=== PATIENT | female | born 1945 | race Caucasian/White ===

== ENCOUNTER → 2016-12-25 | Outpatient (CLI) | payer MEDICARE, OTHER ==
[2016-12-25 13:39] LABS: ALBUMIN 4.1 GM/DL (3.2-5.2); ALBUMIN/GLOBULIN RATIO 1.21 (1.00-1.93); ALKALINE PHOSPHATASE 75 U/L (45-117); ALT/SGPT 21 U/L (12-78); ANION GAP 7 MEQ/L (8-16); AST/SGOT 17 U/L (15-37); BILIRUBIN,TOTAL 0.6 MG/DL (0.2-1.0); BLOOD UREA NITROGEN 21 MG/DL (7-18); CALCIUM LEVEL 9.6 MG/DL (8.8-10.2); CARBON DIOXIDE LEVEL 30 MEQ/L (21-32); CHLORIDE LEVEL 101 MEQ/L (98-107); CHOLESTEROL LEVEL 189 MG/DL (<200); CREATININE FOR GFR 0.63 MG/DL (0.55-1.02); GLOMERULAR FILTRATION RATE > 60.0 (>45); GLUCOSE, FASTING 98 MG/DL (80-110); POTASSIUM SERUM 4.1 MEQ/L (3.5-5.1); SODIUM LEVEL 138 MEQ/L (136-145); TOTAL PROTEIN 7.5 GM/DL (6.4-8.2); TRIGLYCERIDES LEVEL 144 MG/DL (<150)
== END ==
LOC: M SMT 08:52
PROVIDERS: ATTEND Emergency Medicine
DX: I10 Essential (primary) hypertension (principal); E78.2 Mixed hyperlipidemia; E55.9 Vitamin D deficiency, unspecified

== ENCOUNTER → 2017-02-28 | Outpatient (CLI) | payer MEDICARE, OTHER ==
[2017-02-28 11:16] LABS: FOLATE > 24.0 NG/ML; VITAMIN B12 LEVEL 362 PG/ML
== END ==
LOC: M SMT 09:52
PROVIDERS: ATTEND Psychiatry & Neurology Neurology
DX: E55.9 Vitamin D deficiency, unspecified (principal); E03.9 Hypothyroidism, unspecified; E61.0 Copper deficiency

== ENCOUNTER → 2018-08-22 | Outpatient (REF) | payer MEDICARE, OTHER ==
[2018-08-22 12:52] LABS: BASO % 0.6 % (0.0-1.0); EOS # 0.1 10^3/uL (0.0-0.50); EOS % 0.9 % (0.0-3.0); HEMATOCRIT 39.3 % (36.0-47.0); HEMOGLOBIN 13.2 g/dl (12.0-15.5); IMMATURE GRANULOCYTE % 0.4 % (0-3.0); LYMPH # 1.8 10^3/uL (1.5-4.5); LYMPH % 25.8 % (24.0-44.0); MEAN CORPUSCULAR HEMOGLOBIN 33.3 pg (27.0-33.0); MEAN CORPUSCULAR HGB CONC 33.6 g/dl (32.0-36.5); MEAN CORPUSCULAR VOLUME 99.2 fl (80.0-96.0); MONO # 0.4 10^3/uL (0.0-0.8); MONO % 6.4 % (0.0-5.0); NEUTROPHILS # 4.6 10^3/uL (1.8-7.7); NEUTROPHILS % 65.9 % (36.0-66.0); PLATELET COUNT, AUTOMATED 320 10^3/uL (150-450); RED BLOOD COUNT 3.96 10^6/uL (4.00-5.40); RED CELL DISTRIBUTION WIDTH 12.7 % (11.5-14.5); WHITE BLOOD COUNT 6.9 10^3/uL (4.0-10.0)
[2018-08-22 13:36] LABS: ALBUMIN 3.8 GM/DL (3.2-5.2); ALBUMIN/GLOBULIN RATIO 1.19 (1.00-1.93); ALKALINE PHOSPHATASE 81 U/L (45-117); ALT/SGPT 23 U/L (12-78); ANION GAP 7 MEQ/L (8-16); AST/SGOT 20 U/L (7-37); BILIRUBIN,TOTAL 0.5 MG/DL (0.2-1.0); BLOOD UREA NITROGEN 16 MG/DL (7-18); CALCIUM LEVEL 9.8 MG/DL (8.8-10.2); CARBON DIOXIDE LEVEL 30 MEQ/L (21-32); CHLORIDE LEVEL 101 MEQ/L (98-107); CHOLESTEROL LEVEL 159 MG/DL (<200); CHOLESTEROL RISK RATIO 2.789 (<5); FREE T4 1.03 NG/DL (0.76-1.46); GLOMERULAR FILTRATION RATE > 60.0 (>39); GLUCOSE, FASTING 85 MG/DL (70-100); HDL CHOLESTEROL 57 MG/DL (>40); LDL CHOLESTEROL 81 MG/DL (<100); NON-HDL-C 102 MG/DL; POTASSIUM SERUM 3.9 MEQ/L (3.5-5.1); SODIUM LEVEL 138 MEQ/L (136-145); TRIGLYCERIDES LEVEL 103 MG/DL (<150)
== END ==
LOC: M SFHCADAM 09:29
DX: Z00.00 Encounter for general adult medical examination without abnormal findings (principal)
CPT/HCPCS: 84443

== ENCOUNTER → 2019-02-07 | Outpatient (REF) | payer MEDICARE, OTHER ==
[~2019-02-07] MED LIST: DIPH25CA PO; HYDR12CA; LISI-538; MULTCAP PO; NITR-67 PO; OYST500T12; SIMV10TA2; VITA-122
[2019-02-07 19:56] LABS: BASO % 0.1 % (0.0-1.0); HEMATOCRIT 35.3 % (36.0-47.0); HEMOGLOBIN 12.1 g/dl (12.0-15.5); LYMPH # 0.6 10^3/uL (1.5-4.5); LYMPH % 5.7 % (24.0-44.0); MEAN CORPUSCULAR HEMOGLOBIN 32.7 pg (27.0-33.0); MEAN CORPUSCULAR HGB CONC 34.3 g/dl (32.0-36.5); MEAN CORPUSCULAR VOLUME 95.4 fl (80.0-96.0); MONO # 0.7 10^3/uL (0.0-0.8); MONO % 6.2 % (0.0-5.0); NEUTROPHILS # 9.4 10^3/uL (1.8-7.7); NEUTROPHILS % 87.5 % (36.0-66.0); PLATELET COUNT, AUTOMATED 232 10^3/uL (150-450); WHITE BLOOD COUNT 10.8 10^3/uL (4.0-10.0)
== END ==
LOC: M LAB REF 13:57
PROVIDERS: ATTEND Physician Assistant Medical
DX: R50.9 Fever, unspecified (principal)

== ENCOUNTER 2019-02-08 11:41 | Emergency (ER) | payer MEDICARE, OTHER ==
[~2019-02-08] VITALS: Ht 170.2 cm; Wt 52.3 kg
[2019-02-08] MEDS ORDERED: MULTCAP PO (11:51)
[2019-02-08] MEDS ORDERED: SIMV10TA2 (11:51)
[2019-02-08] MEDS ORDERED: HYDR12CA (11:51)
[2019-02-08] MEDS ORDERED: DIPH25CA PO (11:51)
[2019-02-08] MEDS ORDERED: LISI-538 (11:51)
[2019-02-08] MEDS ORDERED: OYST500T12 (11:51)
[2019-02-08] MEDS ORDERED: VITA-122 (11:51)
[2019-02-08] MEDS ORDERED: ACETAMINOPHEN 500 MG TAB PO ONE (12:30)
[2019-02-08] MEDS ORDERED: DILUENT IV ONE (12:45)
[2019-02-08] MEDS ORDERED: NS IV ONE (12:45)
[2019-02-08 13:18] LABS: BASO % 0.2 % (0.0-1.0); HEMOGLOBIN 12.3 g/dl (12.0-15.5); LYMPH # 0.8 10^3/uL (1.5-4.5); LYMPH % 8.9 % (24.0-44.0); MEAN CORPUSCULAR HGB CONC 35.1 g/dl (32.0-36.5); MEAN CORPUSCULAR VOLUME 93.8 fl (80.0-96.0); MONO # 0.7 10^3/uL (0.0-0.8); MONO % 8.1 % (0.0-5.0); NEUTROPHILS # 6.9 10^3/uL (1.8-7.7); NEUTROPHILS % 82.4 % (36.0-66.0); PLATELET COUNT, AUTOMATED 213 10^3/uL (150-450); RED BLOOD COUNT 3.73 10^6/uL (4.00-5.40); WHITE BLOOD COUNT 8.4 10^3/uL (4.0-10.0)
[2019-02-08 13:25] LABS: APPEARANCE, URINE CLOUDY (CLEAR); BACTERIA, URINE AUTO 2+ (NEGATIVE); BILIRUBIN, URINE AUTO NEGATIVE (NEGATIVE); BLOOD, URINE BLOOD 2+ (NEGATIVE); COLOR, URINE YELLOW (YELLOW); GLUCOSE, URINE (UA) AUTO NEGATIVE (NEGATIVE); KETONE, URINE AUTO TRACE mg/dL (NEGATIVE); LEUKOCYTE ESTERASE, URINE AUTO 3+ (NEGATIVE); MUCUS, URINE SMALL (NEGATIVE); NITRITE, URINE AUTO NEGATIVE (NEGATIVE); PROTEIN, URINE AUTO 1+ mg/dL (NEGATIVE); RBC, URINE AUTO 13 /HPF (0-3); SPECIFIC GRAVITY URINE AUTO 1.013 (1.002-1.035); SQUAMOUS EPITHELIAL CELL UR AU 0 /HPF (0-6); UROBILINOGEN, URINE AUTO 0.2 mg/dL (0.0-2.0); WBC, URINE AUTO 121 /HPF (0-3)
[2019-02-08 13:31] LABS: INR 0.94; PROTHROMBIN TIME 12.7 SECONDS (12.1-14.4)
[2019-02-08 13:32] LABS: PARTIAL THROMBOPLASTIN TIME 30.9 SECONDS (25.4-37.6)
--- NOTE | 2019-02-08 13:37 | REP ---
Chest x-ray: Three views. History: Fever. No comparison chest x-ray. Findings: The lungs are slightly hyperinflated consistent with some degree of COPD but free of infiltrate. The pleural angles are sharp. Heart size is normal. The thoracic aorta is a little tortuous and calcific. There are degenerative changes in the thoracic spine. Impression: No acute disease. Electronically Signed by Reji Gonzalez MD 02/08/2019 01:28 P
[2019-02-08 13:38] LABS: ALT/SGPT 32 U/L (12-78); AMYLASE 40 U/L (25-115); BILIRUBIN,DIRECT 0.2 MG/DL (0.0-0.2); BILIRUBIN,TOTAL 0.4 MG/DL (0.2-1.0); BLOOD UREA NITROGEN 33 MG/DL (7-18); CALCIUM LEVEL 9.3 MG/DL (8.8-10.2); CARBON DIOXIDE LEVEL 28 MEQ/L (21-32); CHLORIDE LEVEL 91 MEQ/L (98-107); CREATININE FOR GFR 0.88 MG/DL (0.55-1.30); GLOMERULAR FILTRATION RATE > 60.0 (>39); GLUCOSE, FASTING 106 MG/DL (70-100); POTASSIUM SERUM 3.1 MEQ/L (3.5-5.1); SODIUM LEVEL 129 MEQ/L (136-145); TOTAL PROTEIN 6.2 GM/DL (6.4-8.2)
[2019-02-08 13:46] LABS: INFLUENZA A AMPLIFICATION NEGATIVE (NEGATIVE); INFLUENZA B AMPLIFICATION NEGATIVE (NEGATIVE)
[2019-02-08] MEDS ORDERED: POTASSIUM CHLORIDE 10 MEQ SR TABLET PO ONE (14:15)
[2019-02-08] MEDS ORDERED: NITROFURANTOIN (MACROBID) 100 MG CAP PO ONE (14:15)
[2019-02-08 15:17] LABS: ERYTHROCYTE SEDIMENTATION RATE 72 mm/hr (0-30)
[2019-02-08] MEDS ORDERED: NITR-67 PO (15:17)
[2019-02-08 15:20] VITALS: BP 97/53
--- NOTE | 2019-02-09 07:21 | ECGEPIP ---
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
== END 2019-02-08 15:31 | disposition home or self-care (01) ==
LOC: M ED 11:41
DX: I51.7 Cardiomegaly (principal); N39.0 Urinary tract infection, site not specified; E87.6 Hypokalemia; E87.1 Hypo-osmolality and hyponatremia; D64.9 Anemia, unspecified; I10 Essential (primary) hypertension; G89.29 Other chronic pain; M54.9 Dorsalgia, unspecified; F03.90 Unspecified dementia, unspecified severity, without behavioral disturbance, psychotic disturbance, mood disturbance, and anxiety; Z72.0 Tobacco use; Z79.899 Other long term (current) drug therapy; Z88.0 Allergy status to penicillin; Z88.2 Allergy status to sulfonamides

== ENCOUNTER → 2019-02-20 | Outpatient (REF) | payer MEDICARE, OTHER ==
[2019-02-20 18:13] LABS: ALBUMIN 3.5 GM/DL (3.2-5.2); ALT/SGPT 26 U/L (12-78); BILIRUBIN,TOTAL 0.4 MG/DL (0.2-1.0); BLOOD UREA NITROGEN 13 MG/DL (7-18); CALCIUM LEVEL 9.5 MG/DL (8.8-10.2); CARBON DIOXIDE LEVEL 32 MEQ/L (21-32); CHLORIDE LEVEL 99 MEQ/L (98-107); CREATININE FOR GFR 0.65 MG/DL (0.55-1.30); GLOMERULAR FILTRATION RATE > 60.0 (>39); GLUCOSE, FASTING 87 MG/DL (70-100); POTASSIUM SERUM 4.2 MEQ/L (3.5-5.1); SODIUM LEVEL 136 MEQ/L (136-145); TOTAL PROTEIN 7.4 GM/DL (6.4-8.2)
== END ==
LOC: M SFHCADAM 13:25
PROVIDERS: ATTEND Family Medicine
DX: E87.8 Other disorders of electrolyte and fluid balance, not elsewhere classified (principal)
CPT/HCPCS: 80053; G0463

== ENCOUNTER → 2019-05-15 | Outpatient (CLI) | payer MEDICARE, OTHER ==
--- NOTE | 2019-05-15 15:51 | REP ---
BILATERAL MAMMOGRAM WITH 3D TOMOSYNTHESIS: Comparison 06/09/2014 from [facility] as well as multiple other prior exams. No family history of breast cancer. Tyrer-Cuzick lifetime risk of breast cancer 5.7%. Moderate heterogeneous fibroglandular tissue is again seen bilaterally. No new mass is seen. New tiny calcifications are seen grouped together in the inferolateral left breast posteriorly. Magnification views are recommended to further evaluate. There are scattered benign appearing calcifications diffusely bilaterally. IMPRESSION: BIRADS 0: BI-RADS/ACR category 0 mammogram, Incomplete: Need additional imaging evaluation and/or prior mammograms for comparison. Tiny calcifications grouped together in the posterior left breast inferolaterally. Recommend magnification views to further evaluate. This mammogram was interpreted with the aid of an FDA-approved computer-aided detection system. The patient states she has not had a clinical breast exam in over a year. The patient letter being requested is M0.
== END ==
LOC: M WHC 11:33
PROVIDERS: ATTEND Family Medicine
DX: R92.2 Inconclusive mammogram (principal)

== ENCOUNTER → 2019-06-06 | Outpatient (CLI) | payer MEDICARE, OTHER ==
[~2019-06-06] MED LIST changes: +CLAR10TA7 PO; -DIPH25CA PO; +DIPH25CA32 PO; +HALO20TA PO; -HYDR12CA; +HYDR12CA PO; +HYDR1CR TOP; +KLOR10TA76 PO; -LISI-538; +LISI-538 PO; +MUSCCRE9 TOP; -OYST500T12; +OYST500T12 PO; +PHARMACY COMMENT; +QUET1TAB7 PO; +RAME8TAB2 PO; +SERT25TA21 PO; -SIMV10TA2; +SIMV10TA21 PO; -VITA-122; +VITA-122 PO
--- NOTE | 2019-06-06 19:14 | REP ---
DIAGNOSTIC MAMMOGRAM LEFT BREAST: Multiple magnifications views of the left breast were performed. Correlation made with recent mammogram 10/15/2019 as well as other prior exams. New clustered pleomorphic microcalcifications are confirmed in the posterior lateral left breast. Stereotactic biopsy is recommended. IMPRESSION: ACR 4 suspicious. New cluster or pleomorphic microcalcifications in the posterior lateral left breast. Recommend stereotactic biopsy. BIRADS 4: BI-RADS/ACR category 4 mammogram. Suspicious Abnormality - biopsy should be considered. The patient letter being requested is M4. Electronically Signed by Wing Alvarez MD 06/09/2019 11:29 A
== END ==
LOC: M RAD 12:14
PROVIDERS: ATTEND Family Medicine
DX: R92.2 Inconclusive mammogram (principal); N63.20 Unspecified lump in the left breast, unspecified quadrant

== ENCOUNTER → 2019-06-19 | Outpatient (CLI) | payer MEDICARE, OTHER ==
[~2019-06-19] MED LIST changes: -CLAR10TA7 PO; -HALO20TA PO; +HYDR12CA; -HYDR12CA PO; -HYDR1CR TOP; -KLOR10TA76 PO; +LIDOCAINE 1% MDV 20ML VIAL As Ordered ONE; +LISI-538; -LISI-538 PO; -MUSCCRE9 TOP; +OYST500T12; -OYST500T12 PO; -PHARMACY COMMENT; -QUET1TAB7 PO; -RAME8TAB2 PO; -SERT25TA21 PO; +SIMV10TA2; -SIMV10TA21 PO; +VITA-122; -VITA-122 PO
[2019-06-19 11:46] VITALS: BP 141/68
--- NOTE | 2019-06-19 15:23 | REP ---
ATTEMPTED STEREOTACTIC NEEDLE BIOPSY PROCEDURE LEFT BREAST: HISTORY: The patient was referred for stereotactic needle biopsy procedure because of a new grouping of microcalcifications far posteriorly and inferiorly in the left breast. Comparison mammography, 05/15/2019 and June 06, 2019. These calcifications are reported as new since 2014 prior mammogram. PROCEDURE: The patient was interviewed and informed consent was obtained by SUMANTH King. The patient was placed in a lateral-medial projection in the stereotactic mammographic device. Initial imaging was obtained. This demonstrated the microcalcifications; however, the patient's compressed breast thickness was only 14 mm. This is not sufficient tissue thickness to accommodate the throw of the needle. Stereotactic needle biopsy could not be performed because of the breast parenchymal thickness. Accordingly, the biopsy was aborted. This information was relayed to the patient and her . I discussed the option of needle localization directed excisional biopsy, and interval followup is over at least a 2-year period. The patient, and her , expressed reluctance to have a surgical biopsy at this juncture and wanted to discuss it between themselves and with their referring physician. IMPRESSION: We were not able to carry out the stereotactic needle biopsy because of insufficient compressed breast thickness (14 mm). 6-month followup imaging over a 2-year interval and needle localization directed excisional biopsy would be options to consider, as discussed above. Electronically Signed by Reji Gonzalez MD 06/19/2019 04:51 P
== END ==
LOC: M IRPRO 11:25
DX: R92.0 Mammographic microcalcification found on diagnostic imaging of breast (principal)

== ENCOUNTER → 2019-09-03 | Outpatient (REF) | payer MEDICARE, OTHER ==
[~2019-09-03] MED LIST changes: -LIDOCAINE 1% MDV 20ML VIAL As Ordered ONE
[2019-09-03 12:56] LABS: BASO # 0.1 10^3/uL (0.0-0.2); BASO % 0.7 % (0.0-1.0); EOS # 0.1 10^3/uL (0.0-0.5); HEMATOCRIT 38.7 % (36.0-47.0); HEMOGLOBIN 12.8 g/dl (12.0-15.5); LYMPH % 27.5 % (24.0-44.0); MEAN CORPUSCULAR HEMOGLOBIN 32.7 pg (27.0-33.0); MEAN CORPUSCULAR HGB CONC 33.1 g/dl (32.0-36.5); MONO # 0.5 10^3/uL (0.0-0.8); MONO % 6.7 % (0.0-5.0); NEUTROPHILS # 4.5 10^3/uL (1.5-8.5); PLATELET COUNT, AUTOMATED 298 10^3/uL (150-450); RED BLOOD COUNT 3.91 10^6/uL (4.00-5.40); WHITE BLOOD COUNT 7.2 10^3/uL (4.0-10.0)
[2019-09-03 13:32] LABS: ALBUMIN 3.8 GM/DL (3.2-5.2); ALT/SGPT 21 U/L (12-78); BILIRUBIN,TOTAL 0.6 MG/DL (0.2-1.0); BLOOD UREA NITROGEN 19 MG/DL (7-18); CALCIUM LEVEL 10.2 MG/DL (8.8-10.2); CARBON DIOXIDE LEVEL 34 MEQ/L (21-32); CHLORIDE LEVEL 101 MEQ/L (98-107); CREATININE FOR GFR 0.62 MG/DL (0.55-1.30); FREE T4 0.99 NG/DL (0.76-1.46); GLOMERULAR FILTRATION RATE > 60.0 (>39); GLUCOSE, FASTING 85 MG/DL (70-100); POTASSIUM SERUM 3.7 MEQ/L (3.5-5.1); SODIUM LEVEL 138 MEQ/L (136-145); TOTAL PROTEIN 6.9 GM/DL (6.4-8.2)
== END ==
LOC: M SFHCADAM 07:55
PROVIDERS: ATTEND Family Medicine
DX: R63.4 Abnormal weight loss (principal)

== ENCOUNTER 2019-09-12 13:39 | Inpatient (IN) | payer MEDICARE, OTHER ==
[~2019-09-12] VITALS: Ht 172.7 cm; Wt 51.2 kg
[~2019-09-12 13:39] MED LIST changes: -HYDR12CA; +HYDR12CA PO; -LISI-538; +LISI-538 PO; -OYST500T12; +OYST500T12 PO; -SIMV10TA2; +SIMV10TA21 PO; -VITA-122; +VITA-122 PO
[2019-09-12 14:49] LABS: BASO % 0.5 % (0.0-1.0); EOS # 0.1 10^3/uL (0.0-0.5); EOS % 1.4 % (0.0-3.0); HEMATOCRIT 38.5 % (36.0-47.0); HEMOGLOBIN 12.5 g/dl (12.0-15.5); LYMPH # 1.8 10^3/uL (1.5-5.0); LYMPH % 31.2 % (24.0-44.0); MEAN CORPUSCULAR HEMOGLOBIN 32.5 pg (27.0-33.0); MEAN CORPUSCULAR HGB CONC 32.5 g/dl (32.0-36.5); MONO # 0.4 10^3/uL (0.0-0.8); MONO % 7.6 % (0.0-5.0); NEUTROPHILS # 3.3 10^3/uL (1.5-8.5); NEUTROPHILS % 59.1 % (36.0-66.0); PLATELET COUNT, AUTOMATED 264 10^3/uL (150-450); RED BLOOD COUNT 3.85 10^6/uL (4.00-5.40); WHITE BLOOD COUNT 5.7 10^3/uL (4.0-10.0)
[2019-09-12 15:20] LABS: ALBUMIN 3.5 GM/DL (3.2-5.2); ALT/SGPT 22 U/L (12-78); BILIRUBIN,DIRECT 0.1 MG/DL (0.0-0.2); BILIRUBIN,TOTAL 0.3 MG/DL (0.2-1.0); BLOOD UREA NITROGEN 18 MG/DL (7-18); CALCIUM LEVEL 10.1 MG/DL (8.8-10.2); CARBON DIOXIDE LEVEL 34 MEQ/L (21-32); CHLORIDE LEVEL 102 MEQ/L (98-107); CK-MB VALUE MASS 1.4 NG/ML (<3.6); CPK CREATINE PHOSPHOKINASE 62 U/L (26-192); CREATININE FOR GFR 0.61 MG/DL (0.55-1.30); GLOMERULAR FILTRATION RATE > 60.0 (>39); GLUCOSE, FASTING 80 MG/DL (70-100); MB/CK RELATIVE INDEX 2.26 (< OR =4); POTASSIUM SERUM 3.6 MEQ/L (3.5-5.1); SODIUM LEVEL 140 MEQ/L (136-145); TOTAL PROTEIN 6.9 GM/DL (6.4-8.2); TROPONIN I < 0.02 NG/ML (< 0.10)
[2019-09-12] MEDS ORDERED: PHARMACY COMMENT (16:44)
--- NOTE | 2019-09-12 17:22 | REPVR ---
PROCEDURE INFORMATION: Exam: CT Head Without Contrast Exam date and time: 09/12/2019 5:07 PM Clinical history: 74 years old, female; Altered mental status/memory loss; Confusion or disorientation; Additional info: Altered ms TECHNIQUE: Imaging protocol: Computed tomography of the head without contrast. Radiation optimization: All CT scans at this facility use at least one of these dose optimization techniques: automated exposure control; mA and/or kV adjustment per patient size (includes targeted exams where dose is matched to clinical indication); or iterative reconstruction. COMPARISON: No relevant prior studies available. FINDINGS: Brain: There is no acute intracranial hemorrhage, cerebral edema, or midline shift. Chronic microvascular ischemic changes are seen in the periventricular white matter. Age-related cerebral and cerebellar volume loss is present. Ventricles: Mild ex vacuo dilation of the lateral and third ventricles is noted. Bones/joints: No acute fracture. Sinuses: There is no acute sinusitis. Mastoid air cells: The mastoid air cells are clear. Orbits: The included orbital structures are unremarkable. Soft tissues: Unremarkable. Vasculature: Atherosclerotic calcifications are seen involving the cavernous carotid arteries. IMPRESSION: 1. No acute intracranial abnormality. 2. Atrophy and chronic deep white matter ischemic change. Electronically signed by: David Moran On 09/12/2019 17:21:36 PM
--- NOTE | 2019-09-12 17:40 | HPEPDOC ---
[facility] Medical History & Physical Date of Admission Sep 12, 2019 Date of Service: Sep 12, 2019 History and Physical CHIEF COMPLAINT: Aggression/AMS HISTORY OF PRESENT ILLNESS: Patient is a 74F PMH Alzheimer's dementia, HTN, HLD, DJD brought in by from the ER with complaints of progressive altered mental status. reported that patient has had the diagnosis of Alzheimer's dementia diagnosed 5 years and have gotten progressively worse with recently became more and more aggressive towards him and he is no longer able to take care of her, worse in the past month. He wears a body camera to record her behaviors. Patient herself denies any complaints and does not know why she is in the hospital. She is able to answer some questions appropriately but reports that she is too upset to know the answer to other questions including the current year and refuse to answer place. She is oriented to self. Reports no physical complaints including any chest pain, SOB, fever, chills, dysuria. Discussed with her PCP who had started seeing her for the past year, does note that she came with previous diagnosis of dementia and does not worsening in the past year. May be difficult to detect until prolong conversation of patient takes place. PAST MEDICAL HISTORY: HTN HLD Abnormal mammogram PAST SURGICAL HISTORY: MAVERICK and BSO SOCIAL HISTORY: Smoke 1ppd. Denies alcohol or drug use. FAMILY HISTORY: Reviewed and noncontributory ALLERGIES: Please see below. REVIEW OF SYSTEMS: 10 point review of system negative except as stated in HPI HOME MEDICATIONS: Please see below. PHYSICAL EXAMINATION: General: No acute distress, Alert, emotional and frustrated Eyes: Normal sclera HENT: Atraumatic Cardiovascular: Normal rate, normal rhythm. Pulmonary: Clear to auscultation b/l, no wheezing GI: Soft, nontender, nondistended Skin: Warm and dry Neuro: CN grossly intact. No focal deficits. Strengths equal b/l. Psych: oriented x 1, does not answer all questions. . PLAN: 1. AMS/Worsening aggression - Suspect 2/2 gradual decline from Alzeheimer's dementia. - CT obtained with no acute changes. - No leukocytosis or fevers. Suspicious for possible UTI. - Will wait for urine culture, will hold off on antibiotics at this time. - Given no clear evidence of infection and benign exam, low suspicious for meni ngial disease. - 1:1 observation. - Concern for home safety of patient and . SW consulted for possible placement. 2. HTN - resume home medications. 3. HLD - Resume home med. DVT ppx: SCDs. Patient is active and mobile. Code status: Full code Vital Signs Vital Signs Date Time Temp Pulse Resp B/P (MAP) Pulse Ox O2 Delivery O2 Flow Rate FiO2 09/12/19 14:32 09/12/19 13:59 98.2 82 14 99 Room Air Laboratory Data Labs 24H Laboratory Tests 2 09/12/19 13:59: Immature Granulocyte % (Auto) 0.2, Neutrophils (%) (Auto) 59.1, Lymphocytes (%) (Auto) 31.2, Monocytes (%) (Auto) 7.6H, Eosinophils (%) (Auto) 1.4, Basophils (%) (Auto) 0.5, Neutrophils # (Auto) 3.3, Lymphocytes # (Auto) 1.8, Monocytes # (Auto) 0.4, Eosinophils # (Auto) 0.1, Basophils # (Auto) 0.0, Nucleated Red Blood Cells % (auto) 0.0, Anion Gap 4L, Glomerular Filtration Rate > 60.0, Calcium Level 10.1, Total Bilirubin 0.3, Direct Bilirubin 0.1, Aspartate Amino Transf (AST/SGOT) 14, Alanine Aminotransferase (ALT/SGPT) 22, Alkaline Phosphatase 82, Total Creatine Kinase 62, Creatine Kinase MB 1.4, Creatine Kinase MB Relative Index 2.26, Troponin I < 0.02, Total Protein 6.9, Albumin 3.5, Albumin/Globulin Ratio 1.03, Thyroid Stimulating Hormone (TSH) 1.420 09/12/19 14:33: Urine Color YELLOW, Urine Appearance CLOUDYH, Urine pH 7.0, Urine Specific [place] 1.013, Urine Protein NEGATIVE, Urine Glucose (UA) NEGATIVE, Urine Ketones NEGATIVE, Urine Blood 1+H, Urine Nitrite NEGATIVE, Urine Bilirubin NEGATIVE, Urine Urobilinogen 0.2, Urine Leukocyte Esterase 1+H, Urine WBC (Auto) 65H, Urine RBC (Auto) 8H, Urine Hyaline Casts (Auto) 0, Urine Bacteria (Auto) 2+H, Urine Squamous Epithelial Cells 1, Urine Mucus (Auto) SMALL, Urine Sperm (Auto) CBC/BMP Laboratory Tests 09/12/19 13:59 Microbiology Microbiology 09/12/19 Urine Culture, Received Pending Home Medications Scheduled Calcium Carbonate/Vitamin D3 (Oyster Shell 500-Vit D3 200 Tb) 1 Each Tablet, 1 TAB PO BID Cholecalciferol (Vitamin D3) (Vitamin D3) 1,000 Unit Tablet, 1,000 UNITS PO DAILY Hydrochlorothiazide (Hydrochlorothiazide) 12.5 Mg Capsule, 12.5 MG PO DAILY Lisinopril (Lisinopril) 20 Mg Tablet, 20 MG PO DAILY Multivitamin (Multivitamins) 1 Each Capsule, 1 CAP PO DAILY Simvastatin (Simvastatin) 10 Mg Tablet, 10 MG PO DAILY Scheduled PRN Diphenhydramine HCl (Diphenhydramine HCl) 25 Mg Capsule, 25 MG PO QPM PRN for ALLERGIES Miscellaneous Medications [Pharmacy Comment] STATES THAT PATIENT HAS BEEN REFUSING TO TAKE MEDS. VERIFIED MEDICATIONS WITH [facility]. Allergies Coded Allergies: Penicillins (Verified Allergy, Unknown, 02/08/19) Sulfa (Sulfonamide Antibiotics) (Verified Allergy, Unknown, 02/08/19) A-FIB/CHADSVASC A-FIB History Current/History of A-Fib/PAF?: No ELY BORRERO MD Sep 12, 2019 17:40
[2019-09-12] MEDS ORDERED: diphenhydrAMINE 25 MG CAP PO PRN (18:15)
--- NOTE | 2019-09-12 19:13 | ECGEPIP ---
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
[2019-09-12 22:40] VITALS: BP 116/77
[2019-09-12] MEDS: NICOTINE 21MG/24HR 1 EA TRANSDERMAL TD SCH (22:45)
[2019-09-13] MEDS: RAMELTEON 8 MG TAB (ROZEREM) PO SCH ×3 (01:19→20:14)
[2019-09-13] MEDS: HALOPERIDOL 5 MG/ML VIAL (J1630) IM PRN ×2 (03:11→03:22)
[2019-09-13 06:00] VITALS: BP 124/76
[2019-09-13 06:48] LABS: HEMATOCRIT 37.2 % (36.0-47.0); HEMOGLOBIN 12.3 g/dl (12.0-15.5); MEAN CORPUSCULAR HEMOGLOBIN 32.4 pg (27.0-33.0); MEAN CORPUSCULAR HGB CONC 33.1 g/dl (32.0-36.5); MEAN CORPUSCULAR VOLUME 97.9 fl (80.0-96.0); PLATELET COUNT, AUTOMATED 253 10^3/uL (150-450); WHITE BLOOD COUNT 6.5 10^3/uL (4.0-10.0)
[2019-09-13 07:08] LABS: BLOOD UREA NITROGEN 15 MG/DL (7-18); CALCIUM LEVEL 9.3 MG/DL (8.8-10.2); CARBON DIOXIDE LEVEL 29 MEQ/L (21-32); CHLORIDE LEVEL 103 MEQ/L (98-107); CREATININE FOR GFR 0.54 MG/DL (0.55-1.30); GLOMERULAR FILTRATION RATE > 60.0 (>39); GLUCOSE, FASTING 94 MG/DL (70-100); POTASSIUM SERUM 3.4 MEQ/L (3.5-5.1); SODIUM LEVEL 138 MEQ/L (136-145)
[2019-09-13] MEDS ORDERED: LORATADINE 10 MG TAB PO PRN (09:00)
[2019-09-13] MEDS: POTASSIUM CHLORIDE 10 MEQ SR TABLET PO SCH (10:22)
[2019-09-13] MEDS: hydroCHLOROthiazide 12.5 MG CAPSULE PO SCH (10:22)
[2019-09-13] MEDS: VITAMIN D 1,000 INTERNATIONAL UNITS TABLET PO SCH (10:22)
[2019-09-13] MEDS: SIMVASTATIN 10 MG TAB PO SCH (10:23)
[2019-09-13] MEDS: lisinopriL 20 MG TAB PO SCH (10:23)
[2019-09-13] MEDS: NICOTINE 21MG/24HR 1 EA TRANSDERMAL TD SCH (10:23)
--- NOTE | 2019-09-13 12:41 | IPNPDOC ---
Subjective Date Seen The patient was seen on 09/13/19. Subjective Chief Complaint/HPI denies discomfort. admits to chronic diarrhea in response to eating certain foods. asserts she tolerates beef. ( reports she eats beef hotdogs and cook islander muffins). Constitutional: Denies: Chills ENT: Denies: Head Aches Pulmonary: Denies: Dyspnea, Pleuritic Chest Pain Cardiovascular: Denies: Chest Pain, Palpitations Gastrointestinal: Denies: Nausea, Vomiting, Abdominal Pain Genitourinary: Denies: Dysuria Hematologic: Denies: Bruising Endocrine: Denies: Polydipsia, Polyphagia Musculoskeletal: Denies: Neck Pain Neurological: Denies: Weakness, Numbness Psych: Reports: Mood Normal (reports normal mood but when visited her she became angry and aggressive.) Objective Physical Examination General Exam: Positive: Alert, No Acute Distress Eye Exam: Positive: PERRLA, EOMI ENT Exam: Positive: Atraumatic Neck Exam: Positive: Supple; Negative: thyromegaly Chest Exam: Positive: Clear to auscultation; Negative: Rales, Wheezing Heart Exam: Positive: Rate Normal, Regular Rhythm; Negative: Murmurs Abdomen Exam: Positive: Soft; Negative: Tenderness, Hepatospenomegaly Extremity Exam: Negative: Clubbing, Edema Skin Exam: Positive: Nl turgor and temperature; Negative: Rash Neuro Exam: Positive: Normal Speech Psych Exam: Positive: Other (alert. not oriented to day, date. not able to offer details of past history. evidence of difficulty with word finding.) Assessment /Plan Problems (1) Dementia Status: Chronic Problem Text: increasingly suspicious and now aggressive behavior toward spouse. also reported by nurse from [facility] to Dr. Florencia Benito's office. Dx of Alzheimer's dementia since at least 2017, from review of old records from Dr. Dove's office. CT shows age related microvascular changes. Thyroid normal. So far she has been tractable while in hospital but becomes agitated when was visiting. Suspicious and questioning with nurse approaches with meds but so far, cooperative. Will start low dose anti-psychotic to try to improve aggressive behavior. Reviewed risks with . (2) Essential hypertension Status: Chronic Response to Treatment: Stable (3) Hypercholesteremia Status: Chronic Response to Treatment: Stable (4) Asymptomatic bacteriuria Status: Acute Response to Treatment: Stable Problem Text: Culture "contaminated" (5) Chronic diarrhea Status: Chronic Response to Treatment: Stable Problem Specific Plan: Monitor Clinically, Repeat Labs, Repeat Tests Problem Text: patient asserts this problem is related to certain food intolerances. she has had some weight loss recently but this would be expected as part of advancing dementia. (6) Abnormal mammogram of left breast Status: Acute Problem Text: recent abnormal mammogram was followed by unsuccessful needle bx and she was referred to Dr. Murray. Doesn't appear that the consult has occurred. With her dementia, not clear that it would benefit her to be treated. Should review with PCP. Plan/VTE VTE Prophylaxis Ordered?: No VTE Exclusion Mechanical Proph: Low Risk for VTE VTE Exclusion Pharmacological: At Low Risk for VTE VS, I&O, 24H, Fishbone Vital Signs/I&O Vital Signs Date Time Temp Pulse Resp B/P (MAP) Pulse Ox O2 Delivery O2 Flow Rate FiO2 09/13/19 10:23 124/76 09/13/19 06:00 98.1 79 18 97 Room Air I&O- Last 24 Hours up to 6 AM 09/13/19 06:00 Intake Total 0 ml Output Total 0 ml Balance 0 ml Laboratory Data 24H LABS Laboratory Tests 2 09/12/19 13:59: Immature Granulocyte % (Auto) 0.2, Neutrophils (%) (Auto) 59.1, Lymphocytes (%) (Auto) 31.2, Monocytes (%) (Auto) 7.6H, Eosinophils (%) (Auto) 1.4, Basophils (%) (Auto) 0.5, Neutrophils # (Auto) 3.3, Lymphocytes # (Auto) 1.8, Monocytes # (Auto) 0.4, Eosinophils # (Auto) 0.1, Basophils # (Auto) 0.0, Nucleated Red Blood Cells % (auto) 0.0, Anion Gap 4L, Glomerular Filtration Rate > 60.0, Dharmesh cium Level 10.1, Total Bilirubin 0.3, Direct Bilirubin 0.1, Aspartate Amino Transf (AST/SGOT) 14, Alanine Aminotransferase (ALT/SGPT) 22, Alkaline Phosphatase 82, Total Creatine Kinase 62, Creatine Kinase MB 1.4, Creatine Kinase MB Relative Index 2.26, Troponin I < 0.02, Total Protein 6.9, Albumin 3 .5, Albumin/Globulin Ratio 1.03, Thyroid Stimulating Hormone (TSH) 1.420 09/12/19 14:33: Urine Color YELLOW, Urine Appearance CLOUDYH, Urine pH 7.0, Urine Specific [place] 1.013, Urine Protein NEGATIVE, Urine Glucose (UA) NEGATIVE, Urine Ketones NEGATIVE, Urine Blood 1+H, Urine Nitrite NEGATIVE, Urine Bilirubin NEGATIVE, Urine Urobilinogen 0.2, Urine Leukocyte Esterase 1+H, Urine WBC (Auto) 65H, Urine RBC (Auto) 8H, Urine Hyaline Casts (Auto) 0, Urine Bacteria (Auto) 2+H, Urine Squamous Epithelial Cells 1, Urine Mucus (Auto) SMALL, Urine Sperm (Auto) 09/13/19 06:13: Nucleated Red Blood Cells % (auto) 0.0, Anion Gap 6L, Glomerular Filtration Rate > 60.0, Calcium Level 9.3 CBC/BMP Laboratory Tests 09/12/19 13:59 09/13/19 06:13 Microbiology Microbiology 09/12/19 Urine Culture - Final, Complete Noman Hinson MD Sep 13, 2019 12:41
[2019-09-13 14:00] VITALS: BP 142/64
[2019-09-13] MEDS: SERTRALINE HCL 25 MG TABLET PO SCH (20:14)
[2019-09-13 22:00] VITALS: BP_SYST 12; BP_SYST 132; BP_DIAS 66
[2019-09-14 06:00] VITALS: BP 114/56
[2019-09-14 07:07] LABS: C REACTIVE PROTEIN QUANTITATIV < 0.30 MG/DL (0.00-0.30)
[2019-09-14] MEDS: SIMVASTATIN 10 MG TAB PO SCH (08:17)
[2019-09-14] MEDS: VITAMIN D 1,000 INTERNATIONAL UNITS TABLET PO SCH (08:17)
[2019-09-14] MEDS: NICOTINE 21MG/24HR 1 EA TRANSDERMAL TD SCH (08:17)
[2019-09-14] MEDS: POTASSIUM CHLORIDE 10 MEQ SR TABLET PO SCH (08:17)
[2019-09-14 08:27] VITALS: BP 94/63
[2019-09-14] MEDS: lisinopriL 20 MG TAB PO SCH (08:27)
[2019-09-14] MEDS: hydroCHLOROthiazide 12.5 MG CAPSULE PO SCH (08:30)
--- NOTE | 2019-09-14 11:50 | IPNPDOC ---
Subjective Date Seen The patient was seen on 09/14/19. Subjective Chief Complaint/HPI Irritable, no complaints expressed General: Reports: ROS Unobtainable (refused interview but denies pain, except "pain in my ass" as she gestured toward sitter.) Objective Physical Examination General Exam: Positive: Alert, No Acute Distress Eye Exam: Positive: PERRLA, EOMI ENT Exam: Positive: Atraumatic Other physical findings Patient refused further approach/exam today. Assessment /Plan Problems (1) Dementia Status: Chronic Problem Text: 09/14 more irritable and less cooperative today. increasingly suspicious and now aggressive behavior toward spouse. also reported by nurse from [facility] to Dr. Florencia Benito's office. Dx of Alzheimer's dementia since at least 2016, from review of old records from Dr. Dove's office. CT shows age related microvascular changes. Thyroid normal. So far she has been tractable while in hospital but becomes agitated when was visiting. Suspicious and questioning with nurse approaches with meds but so far, cooperative. Will start low dose anti-psychotic to try to improve aggressive behavior. Reviewed risks with . (2) Essential hypertension Status: Chronic Response to Treatment: Stable Problem Text: pressure low. due to recent weight loss, it may not be necessary to actively treat her pressure, will stop HCTZ and Lisinopril for now and follow. (3) Hypercholesteremia Status: Chronic Response to Treatment: Stable (4) Asymptomatic bacteriuria Status: Acute Response to Treatment: Stable Problem Text: Culture "contaminated" (5) Chronic diarrhea Status: Chronic Response to Treatment: Stable Problem Specific Plan: Monitor Clinically, Repeat Labs, Repeat Tests Problem Text: 09/14 various labs ordered, results pending. looking for inflammatory markers, Celiac disease, evidence of malabsorption, etc. patient asserts this problem is related to certain food intolerances. she has had some weight loss recently but this would be expected as part of advancing dementia. (6) Abnormal mammogram of left breast Status: Acute Problem Text: recent abnormal mammogram was followed by unsuccessful needle bx and she was referred to Dr. Murray. Doesn't appear that the consult has occurred. With her dementia, not clear that it would benefit her to be treated. Should review with PCP. Plan/VTE VTE Prophylaxis Ordered?: No VTE Exclusion Mechanical Proph: Low Risk for VTE VTE Exclusion Pharmacological: At Low Risk for VTE Plan Anticipated Discharge: Fdc VS, I&O, 24H, Fishbone Vital Signs/I&O Vital Signs Date Time Temp Pulse Resp B/P (MAP) Pulse Ox O2 Delivery O2 Flow Rate FiO2 09/14/19 08:27 94/63 09/14/19 06:00 97.0 86 18 97 09/13/19 14:00 Room Air I&O- Last 24 Hours up to 6 AM 09/14/19 06:00 Intake Total 870 ml Output Total 0 ml Balance 870 ml Laboratory Data 24H LABS Laboratory Tests 2 09/14/19 05:55: Erythrocyte Sedimentation Rate 12, C-Reactive Protein, Quantitative < 0.30 Microbiology Microbiology 09/12/19 Urine Culture - Final, Complete Noman Hinson MD Sep 14, 2019 11:50
[2019-09-14 14:00] VITALS: BP 100/63
[2019-09-14 22:00] VITALS: BP 135/63
[2019-09-14] MEDS: SERTRALINE HCL 25 MG TABLET PO SCH (23:02)
[2019-09-14] MEDS: RAMELTEON 8 MG TAB (ROZEREM) PO SCH (23:02)
[2019-09-14] MEDS: QUEtiapine FUMARATE 25 MG TAB PO SCH (23:03)
[2019-09-15 06:00] VITALS: BP 127/60
[2019-09-15 06:43] LABS: BLOOD UREA NITROGEN 18 MG/DL (7-18); CREATININE FOR GFR 0.53 MG/DL (0.55-1.30); GLUCOSE, FASTING 79 MG/DL (70-100)
[2019-09-15 06:44] LABS: ALBUMIN 3.2 GM/DL (3.2-5.2); ALT/SGPT 23 U/L (12-78); BILIRUBIN,TOTAL 0.4 MG/DL (0.2-1.0); CARBON DIOXIDE LEVEL 30 MEQ/L (21-32); CHLORIDE LEVEL 104 MEQ/L (98-107); GLOMERULAR FILTRATION RATE > 60.0 (>39); POTASSIUM SERUM 3.9 MEQ/L (3.5-5.1); SODIUM LEVEL 139 MEQ/L (136-145); TOTAL PROTEIN 6.3 GM/DL (6.4-8.2)
[2019-09-15] MEDS: VITAMIN D 1,000 INTERNATIONAL UNITS TABLET PO SCH (09:44)
[2019-09-15] MEDS: SIMVASTATIN 10 MG TAB PO SCH (09:44)
[2019-09-15] MEDS: POTASSIUM CHLORIDE 10 MEQ SR TABLET PO SCH (09:44)
[2019-09-15] MEDS: NICOTINE 21MG/24HR 1 EA TRANSDERMAL TD SCH (09:45)
[2019-09-15] MEDS: RAMELTEON 8 MG TAB (ROZEREM) PO SCH (21:33)
[2019-09-15] MEDS: SERTRALINE HCL 25 MG TABLET PO SCH (21:33)
[2019-09-15] MEDS: QUEtiapine FUMARATE 25 MG TAB PO SCH (21:33)
[2019-09-15 22:00] VITALS: BP 142/66
[2019-09-16 06:00] VITALS: BP 128/69
[2019-09-16] MEDS: NICOTINE 21MG/24HR 1 EA TRANSDERMAL TD SCH ×2 (09:00→10:20)
[2019-09-16] MEDS ORDERED: ANALGESIC BALM CRM 120 GM TOP PRN (10:15)
[2019-09-16] MEDS: SIMVASTATIN 10 MG TAB PO SCH (10:19)
[2019-09-16] MEDS: VITAMIN D 1,000 INTERNATIONAL UNITS TABLET PO SCH (10:19)
[2019-09-16] MEDS: POTASSIUM CHLORIDE 10 MEQ SR TABLET PO SCH (10:20)
[2019-09-16] MEDS: RAMELTEON 8 MG TAB (ROZEREM) PO SCH (20:10)
[2019-09-16] MEDS: QUEtiapine FUMARATE 25 MG TAB PO SCH (20:10)
[2019-09-16] MEDS: SERTRALINE HCL 25 MG TABLET PO SCH (20:10)
[2019-09-17 06:00] VITALS: BP 128/63
[2019-09-17] MEDS: NICOTINE 21MG/24HR 1 EA TRANSDERMAL TD SCH (09:00)
[2019-09-17] MEDS: POTASSIUM CHLORIDE 10 MEQ SR TABLET PO SCH (09:41)
[2019-09-17] MEDS: SIMVASTATIN 10 MG TAB PO SCH (09:41)
[2019-09-17] MEDS: VITAMIN D 1,000 INTERNATIONAL UNITS TABLET PO SCH (09:41)
[2019-09-17] MEDS: RAMELTEON 8 MG TAB (ROZEREM) PO SCH (20:21)
[2019-09-17] MEDS: SERTRALINE HCL 25 MG TABLET PO SCH (20:21)
[2019-09-17] MEDS: QUEtiapine FUMARATE 25 MG TAB PO SCH (20:21)
[2019-09-18 06:00] VITALS: BP 129/62
[2019-09-18] MEDS: NICOTINE 21MG/24HR 1 EA TRANSDERMAL TD SCH (08:45)
[2019-09-18] MEDS: VITAMIN D 1,000 INTERNATIONAL UNITS TABLET PO SCH (09:01)
[2019-09-18] MEDS: POTASSIUM CHLORIDE 10 MEQ SR TABLET PO SCH (09:02)
[2019-09-18] MEDS: SIMVASTATIN 10 MG TAB PO SCH (09:02)
[2019-09-18 14:00] VITALS: BP 128/65
[2019-09-18 14:16] LABS: ANTI-SACCHAROMYCES CEREV. IgA <20.0 Units (0.0-24.9); ANTI-SACCHAROMYCES CEREV. IgG <20.0 Units (0.0-24.9)
[2019-09-18] MEDS: SERTRALINE HCL 25 MG TABLET PO SCH (22:30)
[2019-09-18] MEDS: RAMELTEON 8 MG TAB (ROZEREM) PO SCH (22:30)
[2019-09-18] MEDS: QUEtiapine FUMARATE 25 MG TAB PO SCH (22:31)
[2019-09-19 06:00] VITALS: BP 132/70
[2019-09-19] MEDS: NICOTINE 21MG/24HR 1 EA TRANSDERMAL TD SCH (09:00)
[2019-09-19] MEDS: POTASSIUM CHLORIDE 10 MEQ SR TABLET PO SCH (09:39)
[2019-09-19] MEDS: VITAMIN D 1,000 INTERNATIONAL UNITS TABLET PO SCH (09:39)
[2019-09-19] MEDS: SIMVASTATIN 10 MG TAB PO SCH (09:39)
[2019-09-19] MEDS: RAMELTEON 8 MG TAB (ROZEREM) PO SCH (21:43)
[2019-09-19] MEDS: QUEtiapine FUMARATE 25 MG TAB PO SCH (21:43)
[2019-09-19] MEDS: SERTRALINE HCL 25 MG TABLET PO SCH (21:43)
[2019-09-19 22:00] VITALS: BP 138/68
[2019-09-20 06:00] VITALS: BP 126/59
[2019-09-20] MEDS: SIMVASTATIN 10 MG TAB PO SCH (08:34)
[2019-09-20] MEDS: VITAMIN D 1,000 INTERNATIONAL UNITS TABLET PO SCH (08:34)
[2019-09-20] MEDS: POTASSIUM CHLORIDE 10 MEQ SR TABLET PO SCH (08:34)
[2019-09-20] MEDS: NICOTINE 21MG/24HR 1 EA TRANSDERMAL TD SCH (08:35)
[2019-09-20] MEDS: RAMELTEON 8 MG TAB (ROZEREM) PO SCH (20:13)
[2019-09-20] MEDS: SERTRALINE HCL 25 MG TABLET PO SCH (20:13)
[2019-09-20] MEDS: QUEtiapine FUMARATE 25 MG TAB PO SCH (20:13)
[2019-09-21 06:00] VITALS: BP 124/63
[2019-09-21] MEDS: VITAMIN D 1,000 INTERNATIONAL UNITS TABLET PO SCH (08:32)
[2019-09-21] MEDS: POTASSIUM CHLORIDE 10 MEQ SR TABLET PO SCH (08:32)
[2019-09-21] MEDS: SIMVASTATIN 10 MG TAB PO SCH (08:32)
[2019-09-21] MEDS: NICOTINE 21MG/24HR 1 EA TRANSDERMAL TD SCH (08:32)
[2019-09-21] MEDS: QUEtiapine FUMARATE 25 MG TAB PO SCH (21:53)
[2019-09-21] MEDS: SERTRALINE HCL 25 MG TABLET PO SCH (21:53)
[2019-09-21] MEDS: RAMELTEON 8 MG TAB (ROZEREM) PO SCH (21:53)
[2019-09-22 06:00] VITALS: BP 119/81
[2019-09-22] MEDS: SIMVASTATIN 10 MG TAB PO SCH (08:09)
[2019-09-22] MEDS: NICOTINE 21MG/24HR 1 EA TRANSDERMAL TD SCH (08:09)
[2019-09-22] MEDS: POTASSIUM CHLORIDE 10 MEQ SR TABLET PO SCH (08:09)
[2019-09-22] MEDS: VITAMIN D 1,000 INTERNATIONAL UNITS TABLET PO SCH (08:09)
--- NOTE | 2019-09-22 11:14 | IPNPDOC ---
Subjective Date Seen The patient was seen on 09/22/19. Subjective Chief Complaint/HPI aggressive behaviors. Events since last encounter Patient's behavior is stable on current medications. Constitutional: Denies: Chills, Fever, Night Sweats Pulmonary: Denies: Dyspnea, Cough Cardiovascular: Denies: Chest Pain, Palpitations, Orthopnea, Paroxysmal Noc. Dyspnea, Lt Headedness Gastrointestinal: Denies: Nausea, Vomiting, Abdominal Pain, Diarrhea, Constipation Genitourinary: Denies: Dysuria, Frequency, Incontinence, Retention Objective Physical Examination General Exam: Positive: Alert, No Acute Distress Eye Exam: Positive: PERRLA, EOMI ENT Exam: Positive: Atraumatic Assessment /Plan Problems (1) Dementia Status: Chronic Problem Text: 09/22/19: continue with placement. 09/14 more irritable and less cooperative today. increasingly suspicious and now aggressive behavior toward spouse. also reported by nurse from [facility] to Dr. Florencia Benito's office. Dx of Alzheimer's dementia since at least 2016, from review of old records from Dr. Dove's office. CT shows age related microvascular changes. Thyroid normal. So far she has been tractable while in hospital but becomes agitated when was visiting. Suspicious and questioning with nurse approaches with meds but so far, cooperative. Will start low dose anti-psychotic to try to improve aggressive behavior. Reviewed risks with . (2) Essential hypertension Status: Chronic Response to Treatment: Stable Problem Text: pressure low. due to recent weight loss, it may not be necessary to actively treat her pressure, will stop HCTZ and Lisinopril for now and follow. (3) Hypercholesteremia Status: Chronic Response to Treatment: Stable (4) Asymptomatic bacteriuria Status: Acute Response to Treatment: Stable Problem Text: Culture "contaminated (5) Chronic diarrhea Status: Chronic Response to Treatment: Stable Problem Specific Plan: Monitor Clinically, Repeat Labs, Repeat Tests Problem Text: 09/14 various labs ordered, results pending. looking for inflammatory markers, Celiac disease, evidence of malabsorption, etc. patient asserts this problem is related to certain food intolerances. she has had some weight loss recently but this would be expected as part of advancing dementia. (6) Abnormal mammogram of left breast Status: Acute Problem Text: recent abnormal mammogram was followed by unsuccessful needle bx and she was referred to Dr. Murray. Doesn't appear that the consult has occurred. With her dementia, not clear that it would benefit her to be treated. Should review with PCP. Plan/VTE VTE Prophylaxis Ordered?: No VTE Exclusion Mechanical Proph: Low Risk for VTE VTE Exclusion Pharmacological: At Low Risk for VTE Plan Anticipated Discharge: Skilled Nursing VS, I&O, 24H, Fishbone Vital Signs/I&O Vital Signs Date Time Temp Pulse Resp B/P (MAP) Pulse Ox O2 Delivery O2 Flow Rate FiO2 09/22/19 06:00 98.1 77 18 119/81 (94) 99 09/21/19 06:00 Room Air I&O- Last 24 Hours up to 6 AM 09/22/19 06:00 Intake Total 1560 ml Balance 1560 ml Laboratory Data Microbiology Microbiology 09/12/19 Urine Culture - Final, Complete Latonya SousaP Sep 22, 2019 11:14
[2019-09-22] MEDS: QUEtiapine FUMARATE 25 MG TAB PO SCH (21:02)
[2019-09-22] MEDS: RAMELTEON 8 MG TAB (ROZEREM) PO SCH (21:02)
[2019-09-22] MEDS: SERTRALINE HCL 25 MG TABLET PO SCH (21:02)
[2019-09-23 06:00] VITALS: BP 123/60
[2019-09-23] MEDS: NICOTINE 21MG/24HR 1 EA TRANSDERMAL TD SCH (07:38)
[2019-09-23] MEDS: POTASSIUM CHLORIDE 10 MEQ SR TABLET PO SCH (09:01)
[2019-09-23] MEDS: VITAMIN D 1,000 INTERNATIONAL UNITS TABLET PO SCH (09:01)
[2019-09-23] MEDS: SIMVASTATIN 10 MG TAB PO SCH (09:01)
--- NOTE | 2019-09-23 11:11 | DSES ---
DATE OF ADMISSION: 09/12/2019 DATE OF DISCHARGE: PRIMARY CARE PHYSICIAN: Josselin Haro DO ATTENDING PHYSICIAN: Nikos Ny MD HISTORY OF PRESENT ILLNESS: This is a 74-year-old female with significant Alzheimer's dementia, hypertension, hyperlipidemia, brought in by her with complaints of progressive altered mental status. The patient has become increasingly aggressive towards her and he is unable to care for her at home. Work up in the emergency department (ED) prove negative for any acute changes. She was suspicious for a urinary tract infection (UTI); however, culture has returned with no growth and specimen appears contaminated. The patient was started on Quetiapine 25 mg by mouth at bedtime (q.h.s.), as well as Rozerem 8 mg by mouth at bedtime (q.h.s.) and she has been tolerating that well. Her behaviors have improved. She does tend to wonder and has a sitter one-to-one for her safety. DISCHARGE DIAGNOSES: 1. Advanced Alzheimer's dementia. 2. Hypertension. 3. Hypercholesterolemia. 4. Chronic diarrhea. 5. Abnormal left breast mammogram. Discharge medications and plan will be dictated at the time of discharge.
[2019-09-23] MEDS: SERTRALINE HCL 25 MG TABLET PO SCH (20:23)
[2019-09-23] MEDS: RAMELTEON 8 MG TAB (ROZEREM) PO SCH (20:23)
[2019-09-23] MEDS: QUEtiapine FUMARATE 25 MG TAB PO SCH (20:23)
[2019-09-24 06:00] VITALS: BP 132/68
[2019-09-24] MEDS: NICOTINE 21MG/24HR 1 EA TRANSDERMAL TD SCH (09:00)
[2019-09-24] MEDS: SIMVASTATIN 10 MG TAB PO SCH (09:55)
[2019-09-24] MEDS: VITAMIN D 1,000 INTERNATIONAL UNITS TABLET PO SCH (09:55)
[2019-09-24] MEDS: POTASSIUM CHLORIDE 10 MEQ SR TABLET PO SCH (09:55)
[2019-09-24] MEDS: RAMELTEON 8 MG TAB (ROZEREM) PO SCH (20:03)
[2019-09-24] MEDS: QUEtiapine FUMARATE 25 MG TAB PO SCH (20:03)
[2019-09-24] MEDS: SERTRALINE HCL 25 MG TABLET PO SCH (20:03)
[2019-09-25 06:00] VITALS: BP 138/65
[2019-09-25] MEDS: SIMVASTATIN 10 MG TAB PO SCH (08:34)
[2019-09-25] MEDS: VITAMIN D 1,000 INTERNATIONAL UNITS TABLET PO SCH (08:34)
[2019-09-25] MEDS: POTASSIUM CHLORIDE 10 MEQ SR TABLET PO SCH (08:35)
[2019-09-25] MEDS: NICOTINE 21MG/24HR 1 EA TRANSDERMAL TD SCH (08:35)
[2019-09-25 14:00] VITALS: BP 132/66
[2019-09-25] MEDS: RAMELTEON 8 MG TAB (ROZEREM) PO SCH (19:38)
[2019-09-25] MEDS: SERTRALINE HCL 25 MG TABLET PO SCH (19:38)
[2019-09-25] MEDS: QUEtiapine FUMARATE 25 MG TAB PO SCH (19:38)
[2019-09-26 06:00] VITALS: BP 134/67
[2019-09-26] MEDS: NICOTINE 21MG/24HR 1 EA TRANSDERMAL TD SCH (09:00)
[2019-09-26] MEDS: VITAMIN D 1,000 INTERNATIONAL UNITS TABLET PO SCH (09:00)
[2019-09-26] MEDS: SIMVASTATIN 10 MG TAB PO SCH (09:01)
[2019-09-26] MEDS: POTASSIUM CHLORIDE 10 MEQ SR TABLET PO SCH (09:01)
[2019-09-26] MEDS: QUEtiapine FUMARATE 25 MG TAB PO SCH (19:55)
[2019-09-26] MEDS: RAMELTEON 8 MG TAB (ROZEREM) PO SCH (19:55)
[2019-09-26] MEDS: SERTRALINE HCL 25 MG TABLET PO SCH (19:55)
[2019-09-27 06:00] VITALS: BP 135/68
[2019-09-27] MEDS: VITAMIN D 1,000 INTERNATIONAL UNITS TABLET PO SCH (07:54)
[2019-09-27] MEDS: SIMVASTATIN 10 MG TAB PO SCH (07:54)
[2019-09-27] MEDS: POTASSIUM CHLORIDE 10 MEQ SR TABLET PO SCH (07:55)
[2019-09-27] MEDS: QUEtiapine FUMARATE 25 MG TAB PO SCH (21:06)
[2019-09-27] MEDS: SERTRALINE HCL 25 MG TABLET PO SCH (21:06)
[2019-09-27] MEDS: RAMELTEON 8 MG TAB (ROZEREM) PO SCH (21:07)
[2019-09-28] MEDS: SIMVASTATIN 10 MG TAB PO SCH (08:03)
[2019-09-28] MEDS: VITAMIN D 1,000 INTERNATIONAL UNITS TABLET PO SCH (08:03)
[2019-09-28] MEDS: POTASSIUM CHLORIDE 10 MEQ SR TABLET PO SCH (08:03)
[2019-09-28] MEDS: RAMELTEON 8 MG TAB (ROZEREM) PO SCH (20:38)
[2019-09-28] MEDS: QUEtiapine FUMARATE 25 MG TAB PO SCH (20:38)
[2019-09-28] MEDS: SERTRALINE HCL 25 MG TABLET PO SCH (20:38)
[2019-09-29 06:00] VITALS: BP 141/73
[2019-09-29] MEDS: VITAMIN D 1,000 INTERNATIONAL UNITS TABLET PO SCH (09:45)
[2019-09-29] MEDS: POTASSIUM CHLORIDE 10 MEQ SR TABLET PO SCH (09:45)
[2019-09-29] MEDS: SIMVASTATIN 10 MG TAB PO SCH (09:46)
[2019-09-29] MEDS: SERTRALINE HCL 25 MG TABLET PO SCH (20:03)
[2019-09-29] MEDS: QUEtiapine FUMARATE 25 MG TAB PO SCH (20:03)
[2019-09-29] MEDS: RAMELTEON 8 MG TAB (ROZEREM) PO SCH (20:03)
[2019-09-30 06:00] VITALS: BP 156/72
[2019-09-30] MEDS: POTASSIUM CHLORIDE 10 MEQ SR TABLET PO SCH (09:22)
[2019-09-30] MEDS: VITAMIN D 1,000 INTERNATIONAL UNITS TABLET PO SCH (09:22)
[2019-09-30] MEDS: SIMVASTATIN 10 MG TAB PO SCH (09:22)
[2019-09-30] MEDS: HALOPERIDOL 5 MG/ML VIAL (J1630) IM PRN (19:26)
[2019-09-30] MEDS: QUEtiapine FUMARATE 25 MG TAB PO SCH (20:00)
[2019-09-30] MEDS: SERTRALINE HCL 25 MG TABLET PO SCH (20:00)
[2019-09-30] MEDS: RAMELTEON 8 MG TAB (ROZEREM) PO SCH (20:00)
[2019-10-01 06:00] VITALS: BP 143/74
[2019-10-01] MEDS: VITAMIN D 1,000 INTERNATIONAL UNITS TABLET PO SCH (09:16)
[2019-10-01] MEDS: POTASSIUM CHLORIDE 10 MEQ SR TABLET PO SCH (09:16)
[2019-10-01] MEDS: SIMVASTATIN 10 MG TAB PO SCH (09:16)
[2019-10-01] MEDS: QUEtiapine FUMARATE 25 MG TAB PO SCH (20:13)
[2019-10-01] MEDS: RAMELTEON 8 MG TAB (ROZEREM) PO SCH (20:13)
[2019-10-01] MEDS: SERTRALINE HCL 25 MG TABLET PO SCH (20:13)
[2019-10-01] MEDS: HYDROCORTISONE 1% CREAM 30 GM TOP SCH (20:14)
[2019-10-02 06:00] VITALS: BP 133/71
[2019-10-02] MEDS: SIMVASTATIN 10 MG TAB PO SCH (08:26)
[2019-10-02] MEDS: POTASSIUM CHLORIDE 10 MEQ SR TABLET PO SCH (08:26)
[2019-10-02] MEDS: VITAMIN D 1,000 INTERNATIONAL UNITS TABLET PO SCH (08:26)
[2019-10-02] MEDS: HYDROCORTISONE 1% CREAM 30 GM TOP SCH ×2 (08:27→20:29)
[2019-10-02] MEDS: SERTRALINE HCL 25 MG TABLET PO SCH (20:28)
[2019-10-02] MEDS: RAMELTEON 8 MG TAB (ROZEREM) PO SCH (20:28)
[2019-10-02] MEDS: QUEtiapine FUMARATE 25 MG TAB PO SCH (20:29)
[2019-10-03 06:00] VITALS: BP 124/72
[2019-10-03] MEDS: VITAMIN D 1,000 INTERNATIONAL UNITS TABLET PO SCH (08:47)
[2019-10-03] MEDS: POTASSIUM CHLORIDE 10 MEQ SR TABLET PO SCH (08:47)
[2019-10-03] MEDS: SIMVASTATIN 10 MG TAB PO SCH (08:47)
[2019-10-03] MEDS: HYDROCORTISONE 1% CREAM 30 GM TOP SCH ×3 (08:47→21:00)
[2019-10-03] MEDS: QUEtiapine FUMARATE 25 MG TAB PO SCH (20:56)
[2019-10-03] MEDS: SERTRALINE HCL 25 MG TABLET PO SCH (20:56)
[2019-10-03] MEDS: RAMELTEON 8 MG TAB (ROZEREM) PO SCH (20:56)
[2019-10-04 06:00] VITALS: BP 141/69
[2019-10-04] MEDS: VITAMIN D 1,000 INTERNATIONAL UNITS TABLET PO SCH (08:48)
[2019-10-04] MEDS: SIMVASTATIN 10 MG TAB PO SCH (08:49)
[2019-10-04] MEDS: HYDROCORTISONE 1% CREAM 30 GM TOP SCH ×2 (08:49→21:00)
[2019-10-04] MEDS: POTASSIUM CHLORIDE 10 MEQ SR TABLET PO SCH (08:49)
[2019-10-04] MEDS: QUEtiapine FUMARATE 25 MG TAB PO SCH (21:10)
[2019-10-04] MEDS: SERTRALINE HCL 25 MG TABLET PO SCH (21:10)
[2019-10-04] MEDS: RAMELTEON 8 MG TAB (ROZEREM) PO SCH (21:10)
[2019-10-05 06:00] VITALS: BP 160/76
[2019-10-05] MEDS: SIMVASTATIN 10 MG TAB PO SCH (08:50)
[2019-10-05] MEDS: POTASSIUM CHLORIDE 10 MEQ SR TABLET PO SCH (08:50)
[2019-10-05] MEDS: VITAMIN D 1,000 INTERNATIONAL UNITS TABLET PO SCH (08:50)
[2019-10-05] MEDS: HYDROCORTISONE 1% CREAM 30 GM TOP SCH ×2 (08:51→19:56)
[2019-10-05] MEDS: QUEtiapine FUMARATE 25 MG TAB PO SCH (19:57)
[2019-10-05] MEDS: SERTRALINE HCL 25 MG TABLET PO SCH (19:57)
[2019-10-05] MEDS: RAMELTEON 8 MG TAB (ROZEREM) PO SCH (19:57)
[2019-10-06] MEDS: HALOPERIDOL 5 MG/ML VIAL (J1630) IM PRN (02:44)
[2019-10-06 06:00] VITALS: BP 140/65
[2019-10-06] MEDS: POTASSIUM CHLORIDE 10 MEQ SR TABLET PO SCH (08:57)
[2019-10-06] MEDS: SIMVASTATIN 10 MG TAB PO SCH (08:57)
[2019-10-06] MEDS: VITAMIN D 1,000 INTERNATIONAL UNITS TABLET PO SCH (08:57)
[2019-10-06] MEDS: HYDROCORTISONE 1% CREAM 30 GM TOP SCH ×2 (08:58→20:24)
--- NOTE | 2019-10-06 09:22 | IPNPDOC ---
Subjective Date Seen The patient was seen on 10/06/19. Subjective Chief Complaint/HPI dementia Events since last encounter behavior remains stable. ambulating around unit w/o difficulty. Awaiting placement. PFS involved. Objective Physical Examination General Exam: Positive: Alert, No Acute Distress Eye Exam: Positive: PERRLA, EOMI ENT Exam: Positive: Atraumatic Assessment /Plan Problems (1) Dementia Status: Chronic Problem Text: 10/06/2019: Continue current medication regimen and placement. 09/22/19: continue with placement. 09/14 more irritable and less cooperative today. increasingly suspicious and now aggressive behavior toward spouse. also reported by nurse from [facility] to Dr. Florencia Benito's office. Dx of Alzheimer's dementia since at least 2016, from review of old records from Dr. Dove's office. CT shows age related microvascular changes. Thyroid normal. So far she has been tractable while in hospital but becomes agitated when was visiting. Suspicious and questioning with nurse approaches with meds but so far, cooperative. Will start low dose anti-psychotic to try to improve aggressive behavior. Reviewed risks with . (2) Essential hypertension Status: Chronic Response to Treatment: Stable Problem Text: pressure low. due to recent weight loss, it may not be necessary to actively treat her pressure, will stop HCTZ and Lisinopril for now and follow. (3) Hypercholesteremia Status: Chronic Response to Treatment: Stable (4) Chronic diarrhea Status: Chronic Response to Treatment: Stable Problem Specific Plan: Monitor Clinically, Repeat Labs, Repeat Tests Problem Text: 09/14 various labs ordered, results pending. looking for inflammatory markers, Celiac disease, evidence of malabsorption, etc. patient asserts this problem is related to certain food intolerances. she has had some weight loss recently but this would be expected as part of advancing dementia. (5) Abnormal mammogram of left breast Status: Acute Problem Text: recent abnormal mammogram was followed by unsuccessful needle bx and she was referred to Dr. Murray. Doesn't appear that the consult has occurred. With her dementia, not clear that it would benefit her to be treated. Should review with PCP. (6) Asymptomatic bacteriuria Status: Resolved Response to Treatment: Stable Problem Text: Culture "contaminated Plan/VTE VTE Prophylaxis Ordered?: No VTE Exclusion Mechanical Proph: Low Risk for VTE VTE Exclusion Pharmacological: At Low Risk for VTE Plan Anticipated Discharge: Retirement VS, I&O, 24H, Fishbone Vital Signs/I&O Vital Signs Date Time Temp Pulse Resp B/P (MAP) Pulse Ox O2 Delivery O2 Flow Rate FiO2 10/06/19 06:00 97.1 59 20 140/65 (90) 100 Room Air I&O- Last 24 Hours up to 6 AM 10/06/19 06:00 Intake Total 620 ml Output Total 0 ml Balance 620 ml Latonya Sousa [employer] PROGRAM COORDINATOR Oct 06, 2019 09:22
[2019-10-06] MEDS: SERTRALINE HCL 25 MG TABLET PO SCH (20:22)
[2019-10-06] MEDS: RAMELTEON 8 MG TAB (ROZEREM) PO SCH (20:23)
[2019-10-06] MEDS: QUEtiapine FUMARATE 25 MG TAB PO SCH (20:23)
[2019-10-07 06:00] VITALS: BP 144/76
[2019-10-07] MEDS: HYDROCORTISONE 1% CREAM 30 GM TOP SCH ×2 (08:05→19:28)
[2019-10-07] MEDS: SIMVASTATIN 10 MG TAB PO SCH (08:05)
[2019-10-07] MEDS: POTASSIUM CHLORIDE 10 MEQ SR TABLET PO SCH (08:05)
[2019-10-07] MEDS: VITAMIN D 1,000 INTERNATIONAL UNITS TABLET PO SCH (08:05)
[2019-10-07] MEDS: RAMELTEON 8 MG TAB (ROZEREM) PO SCH (19:27)
[2019-10-07] MEDS: SERTRALINE HCL 25 MG TABLET PO SCH (19:28)
[2019-10-07] MEDS: QUEtiapine FUMARATE 25 MG TAB PO SCH (19:28)
[2019-10-08 06:00] VITALS: BP 137/63
[2019-10-08] MEDS: HYDROCORTISONE 1% CREAM 30 GM TOP SCH ×2 (08:17→19:38)
[2019-10-08] MEDS: POTASSIUM CHLORIDE 10 MEQ SR TABLET PO SCH (08:17)
[2019-10-08] MEDS: VITAMIN D 1,000 INTERNATIONAL UNITS TABLET PO SCH (08:17)
[2019-10-08] MEDS: SIMVASTATIN 10 MG TAB PO SCH (08:17)
[2019-10-08] MEDS: SERTRALINE HCL 25 MG TABLET PO SCH (19:38)
[2019-10-08] MEDS: RAMELTEON 8 MG TAB (ROZEREM) PO SCH (19:38)
[2019-10-08] MEDS: QUEtiapine FUMARATE 25 MG TAB PO SCH (19:38)
[2019-10-09 06:00] VITALS: BP 144/66
[2019-10-09] MEDS: HYDROCORTISONE 1% CREAM 30 GM TOP SCH ×2 (09:00→20:24)
[2019-10-09] MEDS: SIMVASTATIN 10 MG TAB PO SCH (09:01)
[2019-10-09] MEDS: POTASSIUM CHLORIDE 10 MEQ SR TABLET PO SCH (09:01)
[2019-10-09] MEDS: VITAMIN D 1,000 INTERNATIONAL UNITS TABLET PO SCH (09:01)
[2019-10-09] MEDS: SERTRALINE HCL 25 MG TABLET PO SCH (20:23)
[2019-10-09] MEDS: QUEtiapine FUMARATE 25 MG TAB PO SCH (20:24)
[2019-10-09] MEDS: RAMELTEON 8 MG TAB (ROZEREM) PO SCH (20:24)
[2019-10-09] MEDS: HALOPERIDOL 5 MG/ML VIAL (J1630) IM PRN (22:46)
[2019-10-10] MEDS ORDERED: ACETAMINOPHEN TAB 650MG DOSE (2X325MG) PO PRN (01:45)
[2019-10-10 06:00] VITALS: BP 150/65
[2019-10-10] MEDS ORDERED: HYDR1CR TOP (08:53)
[2019-10-10] MEDS ORDERED: CLAR10TA7 PO (08:53)
[2019-10-10] MEDS ORDERED: HALO20TA PO (08:53)
[2019-10-10] MEDS ORDERED: MUSCCRE9 TOP (08:53)
[2019-10-10] MEDS ORDERED: QUET1TAB7 PO (08:53)
[2019-10-10] MEDS ORDERED: SERT25TA21 PO (08:53)
[2019-10-10] MEDS ORDERED: KLOR10TA76 PO (08:53)
[2019-10-10] MEDS ORDERED: RAME8TAB2 PO (08:53)
--- NOTE | 2019-10-10 08:53 | REP ---
Duplex extremity venous ultrasound: Left lower extremity. History: Left leg swelling and pain. Question DVT. Findings: The deep veins are anechoic and fully compressible from the groin to the popliteal fossa in the left lower extremity. Color flow imaging is homogeneous. Spectral Doppler interrogation demonstrates intact respiratory variation in flow and normal manual augmentation of flow. There is no evidence of deep vein thrombosis. Impression: Negative left lower extremity duplex venous ultrasound. No evidence of deep vein thrombosis. Electronically Signed by Reji Gonzalez MD 10/10/2019 08:52 A
--- NOTE | 2019-10-12 22:00 | DSES ---
DATE OF ADMISSION: 09/12/2019 DATE OF DISCHARGE: 10/10/2019 ADDENDUM: This is an addendum to discharge summary dictated on 09/24/19. The patient he has been stable since that time. On the night prior to her discharge, the nurse called concerned about some leg swelling and so the ultrasound was ordered. I spoke with the radiologist, who gave me a wet read this morning and says this is negative for deep vein thrombosis (DVT). On exam today, she has some bilateral lower extremity trace to 1+ edema without erythema. She denies pain with ambulation on her legs, just some discomfort when you press on the legs themselves. Previous to her admission, she was on hydrochlorothiazide and I will restart that at discharge, as I suspect that she would benefit from some diuretics to control her edema. Her blood pressure is 150/65 and therefore will tolerate the hydrochlorothiazide. She will need some followup of her electrolytes once this has been started, as she has had a tendency toward hypokalemia at one time during the hospitalization; but at last check, her electrolytes and her renal function were normal. Otherwise, she remained stable. She does get IM Haldol on rare occasions for some agitation. She had gotten about four doses since she has been here. She gets 2 mg IM. I am going to order a 1 mg by mouth every 6 hours as needed order, but I would think she will use this very rarely. Her behavior has been quite stable on the Seroquel and Rozerem that were started earlier in the hospitalization and she has been doing very well. Her medications at discharge include: Haloperidol 1 mg by mouth every 6 hours as needed, hydrocortisone topically twice a day, loratadine 10 mg daily as needed for itching, muscle rub cream three times a day as needed, potassium 20 mEq daily, Seroquel 25 mg at bedtime, ramelteon 8 mg at bedtime, sertraline 25 mg at bedtime, calcium one tablet twice a day, vitamin D 1000 international units daily, hydrochlorothiazide 12.5 mg daily, multivitamin daily, simvastatin 10 mg daily DISCHARGE DIAGNOSES: Unchanged from those dictated at the time of her SNF summary with the addition of lower extremity edema with a negative DVT ultrasound.
== END 2019-10-10 09:06 | DRG 57 ==
LOC: M ED 13:39 → M ED INP 17:27 → M MSPAV 22:42
PROVIDERS: ADMIT Student in an Organized Health Care Education/Training Program; ATTEND Family Medicine
DX: G30.9 Alzheimer's disease, unspecified (principal); F02.81 Dementia in other diseases classified elsewhere, unspecified severity, with behavioral disturbance; I10 Essential (primary) hypertension; E78.5 Hyperlipidemia, unspecified; F17.200 Nicotine dependence, unspecified, uncomplicated; Z90.710 Acquired absence of both cervix and uterus; Z79.899 Other long term (current) drug therapy; Z88.0 Allergy status to penicillin; Z88.2 Allergy status to sulfonamides; K52.9 Noninfective gastroenteritis and colitis, unspecified; R92.8 Other abnormal and inconclusive findings on diagnostic imaging of breast; R60.0 Localized edema; E87.6 Hypokalemia